=== PATIENT | female | born 1980 | race Caucasian/White ===

== ENCOUNTER 2017-08-23 15:04 | Emergency (ER) | payer SELFPAY ==
[2017-08-23 15:17] VITALS: BP 131/92; BMI 44.9
[2017-08-23 15:49] LABS: BILIRUBIN,URINE NEGATIVE (NEGATIVE); BLOOD/HEMOGLOBIN,URINE 4+ (NEGATIVE); GLUCOSE, URINE NEGATIVE (NEGATIVE); KETONES,URINE 1+ (NEGATIVE); LEUKOCYTE ESTERASE ,URINE 3+ (NEGATIVE); NITRITES,URINE POSITIVE (NEGATIVE); PROTEIN,URINE 4+ (NEGATIVE); UROBILINOGEN,URINE NORMAL (NORMAL)
[2017-08-23 15:52] LABS: APPEARANCE,URINE HAZY (CLEAR); COLOR,URINE YELLOW (YELLOW)
--- NOTE | 2017-08-23 15:52 | DR.GENAD ---
HPI - PCP Primary Care Physician: CLARK FINNEY - HPI Comment HPI Comment: PAIN WITH NAUSE TIMES 3 DAYS. NO FEVER. GETTING WORSE. - Complaint/Symptoms Chief Complaint Doctors Comments: PAIN RT FLANK AND RIGHT ABDOMEN INCLUDING BEHIND NAVEL. Chief Complaint:: PT C/O PAIN BEHIND NAVEL THAT EXTENDS TO RIGHT SIDE X 3 DAYS. ALSO C/O NAUSEA AND DIZZINESS - Nurses notes reviewed Nurses Notes Review: Yes - Source History Provided: Patient - Mode of Arrival Mode of Arrival: Ambulatory - Timing Onset of Chief Complaint: 08/23/17 Came on: Suddenly - Duration Duration: Constant Duration: Hours - Severity Severity: Moderate PMH - PMH Past Medical History: Yes Past Medical History: Diabetes Past Surgical History: Yes Surgical History: , LONG TERM CARE PHLEBOTOMIST Surgery - Family History History of Family Medical Conditions: Yes Family Medical History: Diabetes Mellitus, Hypertension - Social History Does patient currently use any type of tobacco product: Yes Have you used tobacco products in the last 12 months: Yes Type of Tobacco Use: Cigarettes Does any household member use tobacco: No Alcohol Use: None Do you use any recreational Drugs:: Yes Lives With: Alone Lives Where: Home - infectious screening In the last 2 months have you had wt loss of >10#?: NO Have you had fever, night sweats or hemotysis?: No Have you traveled outside the country in the last 6 months?: No Isolation: Standard ROS - Review of Systems Constitutional: No Symptoms Reported Eyes: No Symptoms Reported ENTM: No Symptoms Reported Respiratoy: No Symptoms Reported Cardiovascular: No Symptoms Reported Gastrointestinal/Abdominal: Abdominal Pain, Nausea Genitourinary: No Symptoms Reported. negative: Dysuria, Frequency, Hematuria Neurological: No Symptoms Reported Musculoskeletal: No Symptoms Reported Integumentary: No Symptoms Reported Hematologic/Lymphatic: No Symptoms Reported Endocrine: No Symptoms Reported All Other Systems: Reviewed and Negative PE - Vital Signs Vitals: Temperature 98.8 F Pulse Rate 106 Respiratory Rate 20 Blood Pressure 131/92 O2 Sat by Pulse Oximetry 99 - General Limitations: No Limitations General Appearance: Alert - Head Head Exam: Normal Inspection - Eyes Eye exam: Normal Appearance - ENT ENT Exam: Normal External Ear Exam External Ear Exam: Normal External Inspection TM/Canal Exam: Bilateral Normal Nose Exam: Normal Nose Exam Mouth Exam: Normal Inspection Throat Exam: Normal Inspection - Neck Neck Exam: Trachea Midline - Chest Chest Inspection: Symmetric Chest Wall Rise - Respiratory Respiratory Exam: Normal Lung Sounds Bilat Respiratory Exam: Bilateral Clear to Auscultation - Cardiovascular Cardiovascular Exam: Regular Rate, Normal Rhythm, Normal Heart Sounds - Abdominal Exam Abdominal Exam: Normal Bowel Sounds, Soft, Tenderness Abdominal Tenderness: RLQ - Extremities Extremities Exam: Normal Inspection - Back Back Exam: Normal Inspection - Neurologic Neurological Exam: Alert, Oriented X3 - Psychiatric Psychiatric Exam: Normal Affect, Normal Mood - Skin Skin Exam: Normal Color MDM - Differential Diagnosis Differential Diagnosis: ABDOMINAL PAIN, RIGHT FLANK PAIN, UTI, KIDNEY STONE, OVARIAN CYST. Course - Treatment Treatment: see orders. - Education/Counseling Education/Counseling: Patient, Education Educated On: Diagnosis, Needs for Follow Up ROR - Labs Reviewed Laboratory Results Reviewed?: Yes Result Diagrams: 08/23/17 16:12 08/23/17 16:12 Laboratory: 08/23/17 15:40 Urine,Clean Catch Urine Culture - Preliminary WBC 10.8 X10^3/uL (3.6-10.0) H 08/23/17 16:12 RBC 4.70 X10^6/uL (3.5-5.4) 08/23/17 16:12 Hgb 13.5 g/dL (12.0-16.0) 08/23/17 16:12 Hct 39.3 % (36.0-47.0) 08/23/17 16:12 MCV 83.5 fL (80.0-100.0) 08/23/17 16:12 MCH 28.7 pg (27.0-34.0) 08/23/17 16:12 MCHC 34.4 g/dL (33.0-35.0) 08/23/17 16:12 RDW 12.5 % (11.6-16.5) 08/23/17 16:12 Plt Count 240 X10^3/uL (150.0-450.0) 08/23/17 16:12 MPV 7.1 fL (7.4-11.0) L 08/23/17 16:12 Neut % 74.5 % (42.0-75.0) 08/23/17 16:12 Lymph % 17.2 % (21.0-51.0) L 08/23/17 16:12 [place] % 6.0 % (0.0-13.0) 08/23/17 16:12 Eos % 1.9 % (0.9-2.9) 08/23/17 16:12 Baso % 0.4 % (0.2-1.0) 08/23/17 16:12 Neut # 8.0 x10^3/uL (2.2-4.8) H 08/23/17 16:12 Lymph # 1.9 X10^3/uL (1.3-2.9) 08/23/17 16:12 [place] # 0.6 x10^3/uL (0.3-0.8) 08/23/17 16:12 Eos # 0.2 x10^3/uL (0.0-0.2) 08/23/17 16:12 Baso # 0.0 X10^3/uL (0.0-0.1) 08/23/17 16:12 Absolute Nucleated RBC 0.0 /100WBC 08/23/17 16:12 Sodium 138 mmol/L (136-145) 08/23/17 16:12 Corrected Sodium 138 mmol/L (136-145) 08/23/17 16:12 Potassium 3.6 mmol/L (3.5-5.1) 08/23/17 16:12 Chloride 103 mmol/L (98-107) 08/23/17 16:12 Carbon Dioxide 26.8 mmol/L (21-32) 08/23/17 16:12 BUN 9 mg/dL (7-18) 08/23/17 16:12 Creatinine 0.93 mg/dL (0.55-1.02) 08/23/17 16:12 Est GFR (MDRD) Af Amer > 60 (>60) 08/23/17 16:12 Est GFR (MDRD) Non-Af > 60 (>60) 08/23/17 16:12 Glucose 111 mg/dL (65-99) H 08/23/17 16:12 Calcium 8.4 mg/dL (8.5-10.1) L 08/23/17 16:12 Corrected Calcium TNP 08/23/17 16:12 Total Bilirubin 0.80 mg/dL (0.2-1.0) 08/23/17 16:12 AST 14 Units/L (15-37) L 08/23/17 16:12 ALT 32 Units/L (12-78) 08/23/17 16:12 Alkaline Phosphatase 88 Units/L (46-116) 08/23/17 16:12 Total Protein 7.7 g/dL (6.4-8.2) 08/23/17 16:12 Albumin 3.6 g/dL (3.4-5.0) 08/23/17 16:12 Globulin 4.1 g/dL (2.5-4.5) 08/23/17 16:12 Albumin/Globulin Ratio 0.9 Ratio (1.1-2.1) L 08/23/17 16:12 Amylase 14 Units/L (25-115) L 08/23/17 16:12 Lipase 68 Units/L (73-393) L 08/23/17 16:12 Specimen Type Clean catch urine 08/23/17 15:40 Urine Color Yellow (YELLOW) 08/23/17 15:40 Urine Appearance Hazy (CLEAR) 08/23/17 15:40 Urine pH 6.0 (5.0 - 8.0) 08/23/17 15:40 Ur Specific [place] 1.010 (1.000-1.030) 08/23/17 15:40 Urine Protein 4+ (NEGATIVE) 08/23/17 15:40 Urine Glucose (UA) Negative (NEGATIVE) 08/23/17 15:40 Urine Ketones 1+ (NEGATIVE) 08/23/17 15:40 Urine Occult Blood 4+ (NEGATIVE) 08/23/17 15:40 Urine Nitrite Positive (NEGATIVE) 08/23/17 15:40 Urine Bilirubin Negative (NEGATIVE) 08/23/17 15:40 Urine Urobilinogen Normal (NORMAL) 08/23/17 15:40 Ur Leukocyte Esterase 3+ (NEGATIVE) 08/23/17 15:40 Urine RBC 3-5 /HPF (NEGATIVE) 08/23/17 15:40 Urine WBC Tntc /HPF (NEGATIVE) 08/23/17 15:40 Ur Squamous Epith Cells Few /HPF (NEGATIVE) 08/23/17 15:40 Urine Bacteria 2+ /HPF (NEGATIVE) 08/23/17 15:40 Ur Culture Indicated? Yes/culture set up 08/23/17 15:40 - XRAY XRAY Interpreted by: Radiologist XRAY Findings: report discuss with patient. - Diagnosis Discharge Problem: Kidney stone, Right flank pain, UTI (urinary tract infection) - Discharge Plan Disposition: 01 HOME, SELF-CARE Condition: Stable Prescriptions: Sulfamethoxazole-Trimethoprim [BACTRIM DS TAB 800/160 MG *] 1 tab PO BID #20 tab Tramadol HCl 50 mg PO Q8H #15 tablet - Follow ups/Referrals Follow ups/Referrals: CLARK FINNEY [Primary Care Provider] - 3 days - Instructions Instructions: Kidney Stones, [id number], Urinary Tract Infection, Adult, Easy -to-Read Additional Instructions: RETURN TO ED IF WORSE.
[2017-08-23 15:53] LABS: BACTERIA,URINE 2+ /HPF (NEGATIVE); SQUAMOUS EPITHELIAL CELL,UR FEW /HPF (NEGATIVE)
[2017-08-23 16:23] LABS: BASOPHILS % (AUTO) 0.4 % (0.2-1.0); EOSINOPHILS # (AUTO) 0.2 x10^3/uL (0.0-0.2); EOSINOPHILS % (AUTO) 1.9 % (0.9-2.9); HEMATOCRIT 39.3 % (36.0-47.0); HEMOGLOBIN 13.5 g/dL (12.0-16.0); LYMPHOCYTES # (AUTO) 1.9 X10^3/uL (1.3-2.9); LYMPHOCYTES % (AUTO) 17.2 % (21.0-51.0); MEAN CORPUSCULAR HEMOGLOBIN 28.7 pg (27.0-34.0); MEAN CORPUSCULAR HGB CONC 34.4 g/dL (33.0-35.0); MEAN CORPUSCULAR VOLUME 83.5 fL (80.0-100.0); MEAN PLATELET VOLUME 7.1 fL (7.4-11.0); MONOCYTES # (AUTO) 0.6 x10^3/uL (0.3-0.8); NEUTROPHILS % (AUTO) 74.5 % (42.0-75.0); PLATELET COUNT 240 X10^3/uL (150.0-450.0); RED CELL DISTRIBUTION WIDTH 12.5 % (11.6-16.5); WHITE BLOOD COUNT 10.8 X10^3/uL (3.6-10.0)
--- NOTE | 2017-08-23 16:26 | CT ---
History: Renal colic and flank pain. Concern for renal stone. Exam: Non-contrast CT examination of the abdomen & pelvis. Technique: Multiple CT images of the abdomen and pelvis were obtained from the lung bases to the pubi c symphysis without the IV administration of radiopaque contrast. Findings: The lung bases are clear. The heart is normal in size without a pericardial effusion. The liver, gall bladder, adrenal glands, and spleen are unremarkable on these non contrasted images. There is no pneu moperitoneum or hemoperitoneum seen. There is no bowel obstruction, large hernia defect, or acute mes enteric inflammatory change. There is no evidence for colitis, diverticulitis, or appendicitis. No lo culated intraperitoneal fluid collection is seen. Examination of the kidneys demonstrates mild right-sided perinephric and periureteral stranding with mild right-sided hydroureter but without evidence for an obstructing renal stone. These findings woul d suggest a recently passed right-sided renal stone or right-sided urinary tract infection/renal infe ction. There is a tiny nonobstructing right inferior pole 2 millimeter renal stone also seen. Numerou s pelvic phleboliths are also seen. No other renal, bladder, or abdominopelvic abnormalities are seen . No lytic bony lesions or acute fractures are seen. Impression: CT findings suggesting a recently passed right-sided renal stone or possibly right-sided urinary trac t infection, as above. Please correlate with urinalysis. No CT evidence for acute appendicitis. No ot her acute abdominopelvic abnormality is appreciated. Reported By:
[2017-08-23 16:38] LABS: ALANINE AMINOTRANSFERASE 32 Units/L (12-78); ALBUMIN 3.6 g/dL (3.4-5.0); ALKALINE PHOSPHATASE 88 Units/L (46-116); AMYLASE 14 Units/L (25-115); ASPARTATE AMINO TRANSFERASE 14 Units/L (15-37); BLOOD UREA NITROGEN 9 mg/dL (7-18); CALCIUM 8.4 mg/dL (8.5-10.1); CARBON DIOXIDE 26.8 mmol/L (21-32); CHLORIDE 103 mmol/L (98-107); COR NA(FOR HYPERGLY) 138 mmol/L (136-145); CREATININE 0.93 mg/dL (0.55-1.02); LIPASE 68 Units/L (73-393); SODIUM 138 mmol/L (136-145); TOTAL PROTEIN 7.7 g/dL (6.4-8.2); eGFR BLACK RACES > 60 (>60); eGFR NON BLACK RACES > 60 (>60)
[2017-08-23] MEDS ORDERED: PHENERGAN INJ 25 MG IM ONE (16:42)
[2017-08-23] MEDS ORDERED: DEMEROL INJ IM ONE (16:42)
[2017-08-23] MEDS ORDERED: PHENERGAN INJ 25 MG ONE (16:43)
[2017-08-23] MEDS ORDERED: DEMEROL INJ ONE (16:43)
== END 2017-08-23 16:49 | disposition home or self-care (01) ==
LOC: ER 15:21
DX: N20.0 Calculus of kidney (principal); R10.84 Generalized abdominal pain; N39.0 Urinary tract infection, site not specified
CPT/HCPCS: 36415; 74176; 80053; 81001; 82150; 83690; 85025; 87086; 87088; 87186; 96372; 99282; 99283; J2175; J2550